=== PATIENT | male | born 1980 | race Caucasian/White ===

== ENCOUNTER → 2020-11-30 | Outpatient (CLI) | payer OTHER ==
--- NOTE | 2020-12-01 17:18 | P.STRESS ---
- Stress Test Note Stress Test Results/Findings: Exam Performed: stress echo exercise with con Exam Date: 11/30/20 Reason for Exam: Abnormal EKG Height: 6 ft Weight: 131.542 kg Protocol: Jamison Stage: III Duration of Exercise: 8:20 min Resting Heart Rate: 93 Resting Blood Pressure: 155/106 Maximum Achieved Heart Rate: 164 Maximum Achieved Blood Pressure: 266/62 85% PMHR: 155 100% PMHR: 182 METS: 10.1 Technologist Comment: Stress Test Results/Findings: Normal EKG at baseline Normal LV systolic function without segmental wall motion normalities Patient exercised for 8 minutes 20 seconds achieving a peak heart rate of 159 beats a minute No ECG evidence for ischemia No arrhythmias Stress echo images showed Good augmentation of overall LV contractility without development of any wall motion abnormalities At recovery, regional and global LV systolic function remained normal Impression No ECG or echocardiographic evidence for ischemia at this workload
== END | disposition home or self-care (01) ==
LOC: RADNMMAIN 10:09
PROVIDERS: ATTEND Family Medicine
DX: R94.31 Abnormal electrocardiogram [ECG] [EKG] (principal)
CPT/HCPCS: 93351; Q9950

== ENCOUNTER → 2021-09-12 | Outpatient (CLI) | payer OTHER ==
--- NOTE | 2021-09-12 21:52 | CT ---
EXAMINATION TYPE: CT chest w con CT DLP: 628.50 mGycm, Automated exposure control for dose reduction was used. DATE OF EXAM: 09/12/2021 5:59 PM COMPARISON: None CLINICAL INDICATION:Male, 41 years old with history of R06.00; , SOB since March 2021 when he had COVID TECHNIQUE: Multiple axial images were obtained through the chest following the administration of 100 cc of Isovue 300. FINDINGS: LUNGS/ PLEURA: Groundglass opacity seen throughout the lungs. There is a small right and trace left p leural effusion. No evidence of pneumothorax. AIRWAY: Patent and unremarkable.. HEART: Size within normal limits. MEDIASTINUM: Right lobe paratracheal lymph node measuring up to 19 mm and AP window measuring 14 mm i n short axis. VASCULATURE: No aortic aneurysm. MUSCULOSKELETAL: No acute osseous abnormalities SOFT TISSUES/LYMPH NODES: Unremarkable. LOWER NECK: No significant findings. UPPER ABDOMEN: Fatty infiltration of segment 4A of the liver. IMPRESSION: 1. Findings suspicious for active atypical viral pneumonia such as covid 19. 2. Bilateral, small right and trace left pleural effusions. These are likely reactive to #1. 3. Mediastinal lymphadenopathy likely reactive to #1.
== END | disposition home or self-care (01) ==
LOC: RADCTMAIN 17:27
PROVIDERS: ATTEND Family Medicine
DX: J90 Pleural effusion, not elsewhere classified (principal); R59.0 Localized enlarged lymph nodes
CPT/HCPCS: 71260; Q9967

== ENCOUNTER 2021-09-17 22:35 | Inpatient (IN) | payer OTHER ==
--- NOTE | 2021-09-18 00:36 | XR ---
EXAMINATION TYPE: XR chest 2V DATE OF EXAM: 09/18/2021 COMPARISON: NONE HISTORY: Short of breath TECHNIQUE: 2 views FINDINGS: Heart is enlarged. There is some patchy pulmonary airspace edema. Edema more on the right s alan. There is slight blunting of the right costophrenic angle. The thoracic spine is intact. Ribs appear intact. IMPRESSION: Cardiomegaly and patchy pulmonary airspace edema could relate to congestive heart failure and RDS.
[2021-09-18] MEDS ORDERED: MORPHINE SULFATE 4 MG/ML SYRINGE IV STA (00:54)
[2021-09-18] MEDS ORDERED: NITROGLYCERIN OINT 1 INCH/GM PACKET TOPICAL STA (00:54)
[2021-09-18] MEDS ORDERED: hydrALAZINE HCL 20 MG/ML 1 ML VIAL IVP STA (00:54)
--- NOTE | 2021-09-18 01:00 | ED ---
SOB HPI - General Chief Complaint: Shortness of Breath Stated Complaint: TANIYA Time Seen by Provider: 09/18/21 00:41 Source: patient Mode of arrival: ambulatory - History of Present Illness Initial Comments: This patient is a 41-year-old man who presents to have evaluation for cough and shortness of breath as well as bilateral leg swelling. The patient states that he has been having issues related to cough and a little shortness of breath going back for days to weeks. He had seen his primary physician who had had had an x-ray taken that he was told showed "scar tissue related to Myles 19 infection from March. When the symptoms did not improve he was sent for computed tomography scan last week and has not received result of that yet. Patient noted that over the past few days she has had progressive bilateral lower extremity swelling and the breathing is worsened somewhat. No fever or chills. No chest pain. He has not noted change in urination or bowel movemen tsHeena AUGUST Complaint: shortness of breath, cough -: days(s) Severity scale (1-10): 0 Consistency: constant Improves With: nothing Worsens With: exertion Treatments Prior to Arrival: none - Related Data Previous Rx's Medication Instructions Recorded Aspirin 81 mg PO DAILY #30 tab 09/20/21 Atorvastatin [Lipitor] 40 mg PO HS #30 tab 09/20/21 Furosemide [Lasix] 40 mg PO BID@0900,1600 #60 tab 09/20/21 Losartan [Cozaar] 25 mg PO DAILY #30 tab 09/20/21 Metoprolol Succinate (ER) [Toprol 50 mg PO DAILY 90 Days #90 tab 09/20/21 XL] Spironolactone [Aldactone] 25 mg PO DAILY #30 tab 09/20/21 Allergies Allergy/AdvReac Type Severity Reaction Status Date / Time No Known Allergies Allergy Verified 09/18/21 07:57 Review of Systems ROS Statement: Those systems with pertinent positive or pertinent negative responses have been documented in the HPI. ROS Other: All systems not noted in ROS Statement are negative. Constitutional: Denies: fever, chills, weakness Respiratory: Reports: cough, dyspnea. Denies: wheezes, hemoptysis Cardiovascular: Reports: edema. Denies: chest pain, palpitations, orthopnea, syncope Gastrointestinal: Denies: abdominal pain, vomiting, diarrhea Genitourinary: Denies: dysuria, hematuria Musculoskeletal: Denies: back pain Skin: Denies: rash Neurological: Denies: headache, weakness, numbness Past Medical History Past Medical History: Hypertension History of Any Multi-Drug Resistant Organisms: None Reported Past Surgical History: No Surgical Hx Reported Past Psychological History: No Psychological Hx Reported Smoking Status: Current some day smoker Past Alcohol Use History: Occasional Past Drug Use History: None Reported - Past Family History family ] Family Medical History: No Reported History Father Additional Family Medical History / Comment(s): liver cancer Mother Family Medical History: Diabetes Mellitus General Exam General appearance: alert, in no apparent distress Head exam: Present: atraumatic, normocephalic Eye exam: Present: normal appearance. Absent: scleral icterus, conjunctival injection Neck exam: Present: normal inspection Respiratory exam: Present: rales (Bilateral bases). Absent: respiratory distress, wheezes, rhonchi, stridor, accessory muscle use, decreased breath sounds Cardiovascular Exam: Present: normal rhythm, tachycardia, gallop. Absent: systolic murmur, diastolic murmur, rubs GI/Abdominal exam: Present: soft. Absent: distended, tenderness, guarding, rebound, rigid, mass Extremities exam: Present: normal inspection, normal capillary refill, pedal edema. Absent: calf tenderness Back exam: Present: normal inspection. Absent: CVA tenderness (R), CVA tenderness (L) Neurological exam: Present: alert Skin exam: Present: warm, dry, intact, normal color. Absent: rash Course Vital Signs 09/17/21 09/18/21 09/18/21 23:36 01:47 02:47 Temperature 98.5 F Pulse Rate 113 H 90 99 Respiratory 19 18 18 Rate Blood Pressure 182/118 156/121 144/109 O2 Sat by Pulse 90 L 94 L 93 L Oximetry 09/18/21 03:47 Temperature Pulse Rate 101 H Respiratory 18 Rate Blood Pressure 159/101 O2 Sat by Pulse 94 L Oximetry Medical Decision Making - Lab Data Result diagrams: 09/19/21 09:34 09/20/21 09:14 Lab Results 09/18/21 09/18/21 09/18/21 Range/Units 01:58 01:58 01:58 WBC 9.6 (3.8-10.6) k/uL RBC 5.10 (4.30-5.90) m/uL Hgb 15.4 (13.0-17.5) gm/dL Hct 47.4 (39.0-53.0) % MCV 92.9 (80.0-100.0) fL MCH 30.2 (25.0-35.0) pg MCHC 32.5 (31.0-37.0) g/dL RDW 14.6 (11.5-15.5) % Plt Count 292 (150-450) k/uL MPV 7.5 Neutrophils % 74 % Lymphocytes % 18 % Monocytes % 4 % Eosinophils % 2 % Basophils % 1 % Neutrophils # 7.1 (1.3-7.7) k/uL Lymphocytes # 1.7 (1.0-4.8) k/uL Monocytes # 0.4 (0-1.0) k/uL Eosinophils # 0.2 (0-0.7) k/uL Basophils # 0.1 (0-0.2) k/uL Hypochromasia Slight PT 11.8 (9.0-12.0) sec INR 1.1 (<1.2) APTT 24.5 (22.0-30.0) sec D-Dimer 1.83 H (<0.60) mg/L FEU Sodium 139 (137-145) mmol/L Potassium 4.6 (3.5-5.1) mmol/L Chloride 109 H (98-107) mmol/L Carbon Dioxide 24 (22-30) mmol/L Anion Gap 6 mmol/L BUN 19 (9-20) mg/dL Creatinine 1.20 (0.66-1.25) mg/dL Est GFR (CKD-EPI)AfAm 88 (>60 ml/min/1.73 sqM) Est GFR (CKD-EPI)NonAf 76 (>60 ml/min/1.73 sqM) Glucose 102 H (74-99) mg/dL Plasma Lactic Acid Lefty (0.7-2.0) mmol/L Calcium 8.5 (8.4-10.2) mg/dL Total Bilirubin 1.1 (0.2-1.3) mg/dL AST 35 (17-59) U/L ALT 31 (4-49) U/L Alkaline Phosphatase 67 (38-126) U/L Troponin I (0.000-0.034) ng/mL NT-Pro-B Natriuret Pep pg/mL Total Protein 6.5 (6.3-8.2) g/dL Albumin 3.6 (3.5-5.0) g/dL Coronavirus (PCR) (Not Detectd) Influenza Type A RNA (Not Detectd) Influenza Type B (PCR) (Not Detectd) 09/18/21 09/18/21 09/18/21 Range/Units 01:58 01:58 01:58 WBC (3.8-10.6) k/uL RBC (4.30-5.90) m/uL Hgb (13.0-17.5) gm/dL Hct (39.0-53.0) % MCV (80.0-100.0) fL MCH (25.0-35.0) pg MCHC (31.0-37.0) g/dL RDW (11.5-15.5) % Plt Count (150-450) k/uL MPV Neutrophils % % Lymphocytes % % Monocytes % % Eosinophils % % Basophils % % Neutrophils # (1.3-7.7) k/uL Lymphocytes # (1.0-4.8) k/uL Monocytes # (0-1.0) k/uL Eosinophils # (0-0.7) k/uL Basophils # (0-0.2) k/uL Hypochromasia PT (9.0-12.0) sec INR (<1.2) APTT (22.0-30.0) sec D-Dimer (<0.60) mg/L FEU Sodium (137-145) mmol/L Potassium (3.5-5.1) mmol/L Chloride (98-107) mmol/L Carbon Dioxide (22-30) mmol/L Anion Gap mmol/L BUN (9-20) mg/dL Creatinine (0.66-1.25) mg/dL Est GFR (CKD-EPI)AfAm (>60 ml/min/1.73 sqM) Est GFR (CKD-EPI)NonAf (>60 ml/min/1.73 sqM) Glucose (74-99) mg/dL Plasma Lactic Acid Lefty 1.3 (0.7-2.0) mmol/L Calcium (8.4-10.2) mg/dL Total Bilirubin (0.2-1.3) mg/dL AST (17-59) U/L ALT (4-49) U/L Alkaline Phosphatase (38-126) U/L Troponin I 0.036 H* (0.000-0.034) ng/mL NT-Pro-B Natriuret Pep 4010 pg/mL Total Protein (6.3-8.2) g/dL Albumin (3.5-5.0) g/dL Coronavirus (PCR) (Not Detectd) Influenza Type A RNA (Not Detectd) Influenza Type B (PCR) (Not Detectd) 09/18/21 09/18/21 Range/Units 01:58 01:58 WBC (3.8-10.6) k/uL RBC (4.30-5.90) m/uL Hgb (13.0-17.5) gm/dL Hct (39.0-53.0) % MCV (80.0-100.0) fL MCH (25.0-35.0) pg MCHC (31.0-37.0) g/dL RDW (11.5-15.5) % Plt Count (150-450) k/uL MPV Neutrophils % % Lymphocytes % % Monocytes % % Eosinophils % % Basophils % % Neutrophils # (1.3-7.7) k/uL Lymphocytes # (1.0-4.8) k/uL Monocytes # (0-1.0) k/uL Eosinophils # (0-0.7) k/uL Basophils # (0-0.2) k/uL Hypochromasia PT (9.0-12.0) sec INR (<1.2) APTT (22.0-30.0) sec D-Dimer (<0.60) mg/L FEU Sodium (137-145) mmol/L Potassium (3.5-5.1) mmol/L Chloride (98-107) mmol/L Carbon Dioxide (22-30) mmol/L Anion Gap mmol/L BUN (9-20) mg/dL Creatinine (0.66-1.25) mg/dL Est GFR (CKD-EPI)AfAm (>60 ml/min/1.73 sqM) Est GFR (CKD-EPI)NonAf (>60 ml/min/1.73 sqM) Glucose (74-99) mg/dL Plasma Lactic Acid Lefty (0.7-2.0) mmol/L Calcium (8.4-10.2) mg/dL Total Bilirubin (0.2-1.3) mg/dL AST (17-59) U/L ALT (4-49) U/L Alkaline Phosphatase (38-126) U/L Troponin I (0.000-0.034) ng/mL NT-Pro-B Natriuret Pep pg/mL Total Protein (6.3-8.2) g/dL Albumin (3.5-5.0) g/dL Coronavirus (PCR) Not Detected (Not Detectd) Influenza Type A RNA Not Detected (Not Detectd) Influenza Type B (PCR) Not Detected (Not Detectd) - EKG Data -: EKG Interpreted by Me EKG shows normal: sinus rhythm, axis (Normal), intervals (Normal), QRS complexes (Normal) Rate: normal (Rate 89 bpm) Interpretation: nonspecific ST-T wave changes Disposition Clinical Impression: CHF (congestive heart failure), Elevated troponin, Acute kidney injury, Hypertension Disposition: ADMITTED IP TO THIS HOSP Condition: Stable Is patient prescribed a controlled substance at d/c from ED?: No
[2021-09-18 02:14] LABS: Basophils # (A) 0.1 k/uL (0-0.2); Basophils % (A) 1 %; Eosinophils # (A) 0.2 k/uL (0-0.7); Eosinophils % (A) 2 %; HCT 47.4 % (39.0-53.0); HGB 15.4 gm/dL (13.0-17.5); Hypochromasia Slight; Lymphocytes # (A) 1.7 k/uL (1.0-4.8); Lymphocytes % (A) 18 %; MCH 30.2 pg (25.0-35.0); MCHC 32.5 g/dL (31.0-37.0); MCV 92.9 fL (80.0-100.0); Mean Platelet Volume 7.5; Monocytes # (A) 0.4 k/uL (0-1.0); Monocytes % (A) 4 %; Neutrophils # (A) 7.1 k/uL (1.3-7.7); Neutrophils % (A) 74 %; Platelet Count 292 k/uL (150-450); RDW 14.6 % (11.5-15.5); WBC 9.6 k/uL (3.8-10.6)
[2021-09-18 02:31] LABS: Albumin 3.6 g/dL (3.5-5.0); Calcium 8.5 mg/dL (8.4-10.2); Total Bilirubin 1.1 mg/dL (0.2-1.3); Total Protein 6.5 g/dL (6.3-8.2)
[2021-09-18 02:37] LABS: Potassium 4.6 mmol/L (3.5-5.1)
[2021-09-18 02:42] LABS: INR 1.1 (<1.2); Partial Thromboplastin Time 24.5 sec (22.0-30.0); Prothrombin Time 11.8 sec (9.0-12.0)
[2021-09-18] MEDS ORDERED: ASPIRIN 81 MG PO STA (02:48)
[2021-09-18] MEDS ORDERED: ALPRAZolam 0.5 MG TAB PO STA (03:14)
[2021-09-18] MEDS ORDERED: FUROSEMIDE 10 MG/ML 4 ML VIAL IV SCH (03:45)
[2021-09-18] MEDS ORDERED: cloNIDine HCL 0.2 MG TAB PO PRN (03:59)
--- NOTE | 2021-09-18 04:08 | P.HPIM ---
History of Present Illness H&P Date: 09/18/21 Chief Complaint: SOB 41 year old male with history of hypertension , not currently on medications patient recently traveled by car to [place], and drove back. he was doing long stretches with not much rest and breaks. since he got back he was feeling increasingly tired. over past week or so , he was getting increasingly short of breath with any activity. which is pretty unusual for him. this has been associated with coughing, non productive, easy fatiguability , orthopnea, PNDs. and progressive swelling of bilateral legs, right > left. he went to see his doctor who ordered CTA of the chest, but no results reported to him . otherwise denies any fever, chills, hemoptyisis, URI symptoms, nausea or vomiting , abd pain , urinary or bowel habit changes. in the ED he was found hypoxic with oxygen sat 90% on room air, uncontrolled blood pressure, blood work showed elevated trops, d dimer, and pro BNP. CXR showed changes suggestive of mild CHF he quit smoking 3 weeks ago . denies drugs or heavy alcohol . Review of Systems Pertinent positives as noted in HPI. All other systems were reviewed and are negative Past Medical History Past Medical History: Hypertension History of Any Multi-Drug Resistant Organisms: None Reported Past Surgical History: No Surgical Hx Reported Past Psychological History: No Psychological Hx Reported Smoking Status: Current some day smoker Past Alcohol Use History: Occasional Past Drug Use History: None Reported - Past Family History family ] Family Medical History: No Reported History Medications and Allergies Allergies Allergy/AdvReac Type Severity Reaction Status Date / Time No Known Allergies Allergy Verified 09/17/21 23:47 Physical Exam Vitals: Vital Signs Temp Pulse Resp BP Pulse Ox 09/17/21 23:36 98.5 F 113 H 19 182/118 90 L Intake and Output 09/17/21 09/17/21 09/18/21 14:59 22:59 06:59 Other: Weight 124.738 kg Constitutional: No acute distress, conversant, pleasant Eyes: Anicteric sclerae, moist conjunctiva, Pupils equal round reactive to light ENMT: NC/AT Oropharynx clear, no erythema, or exudates Neck: Supple, no masses, or JVD No carotid bruits No thyromegaly Lungs: decrease breath sounds at lung basis with inspiratory rales bilaterally Clear to percussion Normal respiratory effort, no accessory muscle use Cardiovascular: Heart regular in rate and rhythm, No murmurs, gallops, or rubs +3 bilateral pitting peripheral edema Abdominal: Soft Nontender, no guarding, rebound or rigidity Abdomen moving with respiration Normoactive bowel sounds No hepatomegaly, No splenomegaly No palpable mass No abdominal wall hernia noted Skin: Normal temperature, tone, texture, turgor No induration No subcutaneous nodules No rash, lesions No ulcers Extremities: No digital cyanosis No clubbing Pedal pulses intact and symmetrical Radial pulses intact and symmetrical No calf tenderness Psychiatric: Alert and oriented to person, place and time Appropriate affect fair judgement Neuro Muscles Strength 5/5 in all 4 extremities Sensation to light touch grossly present throughout Cranial nerves II-XII grossly intact No focal sensory deficits Lymphatics: no palpable cervical or supraclavicular , or inguinal lymph nodes Results CBC & Chem 7: 09/18/21 01:58 09/18/21 01:58 Labs: Abnormal Lab Results - Last 24 Hours (Table) 09/18/21 09/18/21 09/18/21 Range/Units 01:58 01:58 01:58 D-Dimer 1.83 H (<0.60) mg/L FEU Chloride 109 H (98-107) mmol/L Glucose 102 H (74-99) mg/dL Troponin I 0.036 H* (0.000-0.034) ng/mL Assessment and Plan Assessment: acute hypoxic respiratory failure new onset CHF rule out venous thrombo embolism uncontrolled hypertension elevated trops plan trend trops cardiac rehabilitation program director cardiology consult ASA lasix IV BID echo CTA of lungs venous doppler US b/l legs PRN clonidine initiate on lisinopril check lipid panel , TSH, A1c xanax PRN full code DVT PPX heparin sc tid anticipated length of stay > 2 midnights
--- NOTE | 2021-09-18 04:39 | CT ---
EXAMINATION TYPE: CT chest angio for PE DATE OF EXAM: 09/18/2021 COMPARISON: None HISTORY: R/O PE CT DLP: 948.10 mGycm Automated exposure control for dose reduction was used. CONTRAST: Performed with IV Contrast, patient injected with 100 mL of Isovue 370. Images obtained from the thoracic inlet to the diaphragm with IV contrast. There are Three-D postproc essed images. There are small bilateral pleural effusions. Heart is enlarged. There is patchy interstitial and airs pace infiltrates throughout both lungs. There are multiple enlarged paratracheal and mediastinal lymph nodes measuring up to 2 cm. There are a few bilateral bronchial lymph nodes up to 1 cm. There is no evidence of filling defect in the pulmo nary arteries. Bony thorax is intact. Sternum is intact. There is no compression fracture. IMPRESSION: No evidence of pulmonary embolism. Patchy pulmonary edema with right pleural effusion. Mild mediastin al and bronchial adenopathy. Congestive heart failure is possible. Multifocal pneumonia or RDS is pos sible.
[2021-09-18 04:59] LABS: Basophils # (A) 0.1 k/uL (0-0.2); Basophils % (A) 1 %; Eosinophils # (A) 0.1 k/uL (0-0.7); Eosinophils % (A) 1 %; HCT 51.2 % (39.0-53.0); HGB 16.2 gm/dL (13.0-17.5); Hypochromasia Slight; Lymphocytes # (A) 1.6 k/uL (1.0-4.8); Lymphocytes % (A) 15 %; MCH 29.7 pg (25.0-35.0); MCHC 31.7 g/dL (31.0-37.0); MCV 93.5 fL (80.0-100.0); Mean Platelet Volume 7.4; Monocytes # (A) 0.4 k/uL (0-1.0); Monocytes % (A) 3 %; Neutrophils # (A) 8.2 k/uL (1.3-7.7); Neutrophils % (A) 78 %; Platelet Count 314 k/uL (150-450); RBC 5.47 m/uL (4.30-5.90); RDW 14.5 % (11.5-15.5); WBC 10.5 k/uL (3.8-10.6)
[2021-09-18 05:17] LABS: ALT 33 U/L (4-49); AST 28 U/L (17-59); African American GFR (CKD) 85 (>60 ml/min/1.73 sqM); Albumin 4.1 g/dL (3.5-5.0); Alkaline Phosphatase 88 U/L (38-126); Anion Gap 8 mmol/L; Blood Urea Nitrogen 17 mg/dL (9-20); Carbon Dioxide 26 mmol/L (22-30); Chloride 105 mmol/L (98-107); Glucose 102 mg/dL (74-99); Non-African American GFR(CKD) 74 (>60 ml/min/1.73 sqM); Potassium 4.1 mmol/L (3.5-5.1); Sodium 139 mmol/L (137-145); Total Bilirubin 1.3 mg/dL (0.2-1.3); Total Protein 7.1 g/dL (6.3-8.2)
--- NOTE | 2021-09-18 07:41 | US ---
EXAMINATION TYPE: US venous doppler duplex LE BI DATE OF EXAM: 09/18/2021 7:31 AM COMPARISON: NONE CLINICAL HISTORY: rule out DVT. edema bilateral legs SIDE PERFORMED: bilateral TECHNIQUE: The lower extremity deep venous system is examined utilizing real time linear array sonog jaylin with graded compression, doppler sonography and color-flow sonography. VESSELS IMAGED: Common Femoral Vein Deep Femoral Vein Greater Saphenous Vein * Femoral Vein Popliteal Vein Small Saphenous Vein * Proximal Calf Veins (* superficial vessels) Right Leg: no evidence of DVT Left Leg: no evidence of DVT IMPRESSION: No evidence for DVT.
[2021-09-18] MEDS: NITROGLYCERIN OINT 1 INCH/GM PACKET TOPICAL SCH ×4 (09:19→21:05)
[2021-09-18] MEDS ORDERED: ALPRAZolam 0.25 MG TAB PO PRN (09:21)
[2021-09-18] MEDS ORDERED: ALPRAZolam 0.5 MG TAB PO PRN (09:21)
[2021-09-18] MEDS ORDERED: ATORVASTATIN 80 MG TAB PO STA (09:21)
[2021-09-18] MEDS ORDERED: NITROGLYCERIN SL TABS 0.4 MG TAB SUBLINGUAL PRN (09:21)
[2021-09-18] MEDS ORDERED: ASPIRIN 325 MG TAB PO STA (10:10)
[2021-09-18] MEDS: HEPARIN SODIUM,PORCINE/PF 5,000 UNIT/0.5 ML SYRINGE SQ SCH ×3 (10:17→23:27)
[2021-09-18] MEDS: ACETAMINOPHEN TAB 325 MG TAB PO PRN ×2 (10:17→23:27)
[2021-09-18] MEDS: lisinopriL 10 MG TAB PO SCH (10:18)
--- NOTE | 2021-09-18 10:32 | P.CRDCN ---
History of Present Illness History of present illness: HISTORY OF PRESENTING ILLNESS This is a pleasant 41-year-old male past medical history significant for Covid 19 infection in 03/2021 and hypertension (currently not on antihypertensives), chronic nicotine dependence (recently quit 3 weeks ago). He does not follow with a shipmaster. We have been asked to see in consultation for congestive heart failure. Patient presents emergency department with worsening symptoms of fatigue, bilateral lower extremity edema, dyspnea on exertion, shortness of breath, orthopnea, increased/fluctuating weight. He states his symptoms initially started in March when he had COVID, he thought it was lasting longer and he had longstanding covid symptoms. However, over the past week his symptoms have been becoming severe. He denies any chest pain, palpitations, lightheadedness, dizziness, syncope or near syncope. She denies a history of coronary disease, WI, stroke, diabetes. Family history includes grandmother had a history of WI. She has a history of chronic nicotine dependence recently quit 3 weeks ago. Denies daily alcohol use . He currently does not take any medications at home. DIAGNOSTICS EKG reveals sinus tachycardia, no acute ST segment abnormalities stress ischemia. Telemetry tracings indicate sinus mechanism with heart rates in the [id number] Chest xray cardiomegaly and patchy pulmonary is received edema Venous Dopplers were negative for DVT bilaterally Chest CT was negative for pulmonary embolism. Patchy pulmonary edema with right pleural effusion. Mild mediastinal bronchus or adenopathy. Laboratory reviewed, CBC unremarkable, d-dimer 1.8, sodium 139, potassium 4.1, BUN 17, serum creatinine 1.23, troponin 0.036, 0.039, 0.034, BNP 4010, TSH within normal limits, Covid and influenza PCR negative Stress echocardiogram test in 11/2020 revealed normal LV systolic function without segmental wall motion abnormalities. No evidence of ischemia. REVIEW OF SYSTEMS At the time of my exam: CONSTITUTIONAL: Denies fever or chills. CARDIOVASCULAR: Denies chest pain, +shortness of breath, +orthopnea, +PND Denies palpitations. RESPIRATORY: Denies cough. GASTROINTESTINAL: Denies abdominal pain, diarrhea, constipation, nausea or vomiting. MUSCULOSKELETAL: Denies myalgias. NEUROLOGIC: Denies numbness, tingling, headache or weakness. ENDOCRINE: Denies fatigue, +weight change, Denies polydipsia or polyurina. GENITOURINARY: Denies burning, hematuria or urgency with micturation. HEMATOLOGIC: Denies history of anemia or bleeding. PHYSICAL EXAMINATION Blood pressure 134/93, heart rate 103, afebrile, saturations 93% on room air CONSTITUTIONAL: No apparent distress. HEENT: Head is normocephalic. Pupils are equal, round. Sclerae anicteric. Mucous membranes of the mouth are moist. + JVD. No carotid bruit. CHEST EXAMINATION: Lungs crackles in the bases to auscultation. No chest wall tenderness is noted on palpation or with deep breathing. HEART EXAMINATION: Regular rate and rhythm. S1, S2 heard. No murmurs, gallops or rub. ABDOMEN: Soft, nontender. Positive bowel sounds. EXTREMITIES: 2+ peripheral pulses, 2+ bilateral extremity edema and no calf tenderness. SKIN: warm, dry NEUROLOGIC EXAMINATION: Patient is awake, alert and oriented x3. ASSESSMENT Acute heart failure with reduced ejection fraction Cardimyopathy with EF 20-25%, unclear etiology at this time History of hypertension Former tobacco use Covid-19 infection in march 2021 PLAN -Obtain 2D echocardiogram and doppler study to assess cardiac structure and function- reviewed at bedside by Dr. Raines with an about EF 20-25%, global hypokinesis -NPO -Continue aspirin 81 mg daily, IV Lasix 40 mg IV twice a day, lisinopril 10 mg daily -Monitor renal function and electrolytes. -Monitor I/Os, daily weights -Plan for right and left heart catheterization with Dr. Raines today. Patient is agreeable -I have discussed the risks, benefits and alternative therapies for the above- mentioned procedure and for both sedation/analgesia as well as necessary blood product administration, if indicated, as they pertain to this patient. The patient has indicated understanding and acceptance of the risks and procedures discussed. Questions have been answered appropriately and he is agreeable to move forward with the above-stated procedure. -Further recommendations based on clinical course Thank you kindly for this consultation. Nurse practitioner note has been reviewed by physician. Signing provider agrees with the documented findings, assessment, and plan of care. Past Medical History Past Medical History: Hypertension History of Any Multi-Drug Resistant Organisms: None Reported Past Surgical History: No Surgical Hx Reported Past Psychological History: No Psychological Hx Reported Smoking Status: Former smoker Past Alcohol Use History: Occasional Past Drug Use History: None Reported - Past Family History Father Additional Family Medical History / Comment(s): liver cancer Mother Family Medical History: Diabetes Mellitus family ] Family Medical History: No Reported History Medications and Allergies Home Medications Medication Instructions Recorded Confirmed Type No Known Home Medications 09/18/21 09/18/21 History Allergies Allergy/AdvReac Type Severity Reaction Status Date / Time No Known Allergies Allergy Verified 09/18/21 07:57 Physical Exam Vitals: Vital Signs Temp Pulse Pulse Resp BP BP Pulse Ox 09/18/21 08:00 97.6 F 103 H 17 134/93 93 L 09/18/21 05:28 97.6 F 113 H 18 157/120 93 L 09/18/21 03:47 101 H 18 159/101 94 L 09/18/21 02:47 99 18 144/109 93 L 09/18/21 01:47 90 18 156/121 94 L 09/17/21 23:36 98.5 F 113 H 19 182/118 90 L Intake and Output 09/17/21 09/18/21 09/18/21 22:59 06:59 14:59 Output Total 1820 Balance -1820 Output: Urine 1820 Other: Weight 124.738 kg Results 09/18/21 04:29 09/18/21 04:29 Cardiac Enzymes 09/18/21 09/18/21 09/18/21 Range/Units 01:58 01:58 04:29 AST 35 (17-59) U/L Troponin I 0.036 H* 0.039 H* (0.000-0.034) ng/mL 09/18/21 Range/Units 04:29 AST 28 (17-59) U/L Troponin I (0.000-0.034) ng/mL Coagulation 09/18/21 Range/Units 01:58 PT 11.8 (9.0-12.0) sec APTT 24.5 (22.0-30.0) sec CBC 09/18/21 09/18/21 Range/Units 01:58 04:29 WBC 9.6 10.5 (3.8-10.6) k/uL RBC 5.10 5.47 (4.30-5.90) m/uL Hgb 15.4 16.2 (13.0-17.5) gm/dL Hct 47.4 51.2 (39.0-53.0) % Plt Count 292 314 (150-450) k/uL Comprehensive Metabolic Panel 09/18/21 09/18/21 Range/Units 01:58 04:29 Sodium 139 139 (137-145) mmol/L Potassium 4.6 4.1 (3.5-5.1) mmol/L Chloride 109 H 105 (98-107) mmol/L Carbon Dioxide 24 26 (22-30) mmol/L BUN 19 17 (9-20) mg/dL Creatinine 1.20 1.23 (0.66-1.25) mg/dL Glucose 102 H 102 H (74-99) mg/dL Calcium 8.5 9.0 (8.4-10.2) mg/dL AST 35 28 (17-59) U/L ALT 31 33 (4-49) U/L Alkaline Phosphatase 67 88 (38-126) U/L Total Protein 6.5 7.1 (6.3-8.2) g/dL Albumin 3.6 4.1 (3.5-5.0) g/dL Current Medications Generic Name Dose Route Start Last Admin Trade Name Freq PRN Reason Stop Dose Admin Aspirin 325 mg 09/19/21 09:00 Aspirin 325 Mg Tab PO DAILY MORENA Clonidine 0.2 mg 09/18/21 03:59 09/18/21 06:02 Clonidine Hcl 0.2 Mg Tab PO 0.2 mg QID PRN Administration Blood Pressure - High Furosemide 40 mg 09/18/21 03:45 09/18/21 04:10 Furosemide 10 Mg/Ml 4 Ml Vial IV 40 mg Q12H MORENA Administration Heparin Sodium (Porcine) 5,000 unit 09/18/21 08:00 Heparin Sodium,Porcine/Pf 5,000 Unit/0.5 Ml Syringe SQ Q8HR MORENA Lisinopril 10 mg 09/18/21 09:00 Lisinopril 10 Mg Tab PO DAILY MORENA Nitroglycerin 1 inch 09/18/21 09:00 Nitroglycerin Oint 1 Inch/Gm Packet TOPICAL QID MORENA Sodium Chloride 10 ml 09/18/21 09:00 Sodium Chloride 0.9% Flush 10 Ml Syringe IV BID MORENA Intake and Output 09/17/21 09/18/21 09/18/21 22:59 06:59 14:59 Output Total 1820 Balance -1820 Output: Urine 1820 Other: Weight 124.738 kg 09/18/21 04:29 09/18/21 04:29
[2021-09-18 11:13] LABS: Chol/HDL Ratio 5.19 Ratio
--- NOTE | 2021-09-18 12:58 | P.PN ---
Subjective Progress Note Date: 09/18/21 Principal diagnosis: Shortness of breath, lower extremity swelling Patient was seen and examined. No acute events overnight. Patient reports improvement in his breathing since admission. He continues to report lower extremity swelling has been improving as well. Denies any chest pain or palpitations. No nausea or vomiting. No fever or chills. Venous dopper negative for DVT. CTA chest negative for PE shows patchy pulmonary edema with R pleural effusion. Objective - Vital Signs Vital signs: Vital Signs Temp 97.6 F 09/18/21 08:00 Pulse 103 H 09/18/21 08:00 Resp 17 09/18/21 08:00 BP 134/93 09/18/21 08:00 Pulse Ox 93 L 09/18/21 08:00 Intake & Output 09/17/21 09/18/21 09/18/21 18:59 06:59 18:59 Output Total 1820 Balance -1820 Weight 124.738 kg Output: Urine 1820 - Exam General: [non toxic], [no distress], [appears at stated age] Derm: [warm], [dry] Head: [atraumatic], [normocephalic], [symmetric] Eyes: [EOMI], [no lid lag], [anicteric sclera] Mouth: [no lip lesion], [mucus membranes moist] Cardiovascular: [S1S2 reg], [no murmur] Lungs: [Decreased breath sounds bilateral], [Inspiratory rales at the bases] , [no accessory muscle use] Abdominal: [soft], [ nontender to palpation], [no guarding], [no appreciable organomegaly] Ext: [no gross muscle atrophy], [2-3+ pitting edema bilateral lower extremity], [no contractures] Neuro: [no focal neuro deficits] Psych: [Alert], [oriented], [appropriate affect] - Labs CBC & Chem 7: 09/18/21 04:29 09/18/21 04:29 Labs: Abnormal Lab Results - Last 24 Hours (Table) 09/18/21 09/18/21 09/18/21 Range/Units 01:58 01:58 01:58 Neutrophils # (1.3-7.7) k/uL D-Dimer 1.83 H (<0.60) mg/L FEU Chloride 109 H (98-107) mmol/L Glucose 102 H (74-99) mg/dL Troponin I 0.036 H* (0.000-0.034) ng/mL Cholesterol (0.00-200.00) mg/dL LDL Cholesterol, Calc (0.0-131.0) mg/dL 09/18/21 09/18/21 09/18/21 Range/Units 04:29 04:29 04:29 Neutrophils # 8.2 H (1.3-7.7) k/uL D-Dimer (<0.60) mg/L FEU Chloride (98-107) mmol/L Glucose 102 H (74-99) mg/dL Troponin I 0.039 H* (0.000-0.034) ng/mL Cholesterol 222.00 H (0.00-200.00) mg/dL LDL Cholesterol, Calc 157.0 H (0.0-131.0) mg/dL Assessment and Plan Assessment: Assessment #Non-ST elevation NM #Acute systolic CHF with EF 20-25% #Hypertension with elevated BP #Dyslipidemia Plan Troponins have been downtrending from 0.036 to 0.039 and 0.034. EKG shows no ST elevation. Echocardiogram shows EF of 20-25% as per Cardiology report, official read is pending. Cardiology consulted, plans for cardiac catheterization today. Start Aspirin 80 mg by mouth daily along with Lipitor. Patient would benefit from beta nitish. Continue Telemetry monitoring. Patient will be started on Lasix 40 mg IV twice a day. Strict intake and outtake is ordered. Daily weights is ordered. Official echocardiogram is pending. Continue Lisinopril for hypertension. Monitor vitals, adjust medications as necessary. DVT prophylaxis: [Heparin] Discussed with: [Patient] Anticipated discharge: [2-3 days] Anticipated discharge place: [Home] A total of [45] minutes was spent on the care of this complex patient more than 50% of the time was spent in counseling and care coordination.
[2021-09-18] MEDS ORDERED: IV FLUID CONTINUATION 350 ML IV ONE (14:18)
[2021-09-18] MEDS ORDERED: MIDAZOLAM 2 MG/2 ML VIAL IV ONE (14:31)
[2021-09-18] MEDS ORDERED: LIDOCAINE 1% INJ 10MG/ML (30 ML VIAL-PF) SQ ONE ×2 (14:33→14:34)
[2021-09-18] MEDS ORDERED: HYDROmorphone 0.5 MG/0.5 ML SYRINGE IVP ONE (14:39)
[2021-09-18] MEDS ORDERED: IOPAMIDOL-370 125ML BTL INJ ONE (15:01)
[2021-09-18] MEDS ORDERED: RX INFO: IV CONTRAST WAS GIVEN 1 EACH MISC MISCELLANE PRN (15:05)
--- NOTE | 2021-09-18 15:12 | P.PCN ---
Date of Procedure: 09/18/21 Operative Findings: CARDIAC CATHETERIZATION PERFORMING PHYSICIAN: Gerardo Raines MD, RPVI PROCEDURE PERFORMED: 1. Selective right and left coronary angiogram 2. Left heart catheterization 3. Right heart catheterization 4. Ultrasound-guided access of the right common femoral vein and common femoral artery 5. Selective right common femoral artery angiogram INDICATION: Cardiomyopathy of unknown etiology COMPLICATION: None APPROACH: Right common femoral vein Right common femoral artery LEVEL OF SEDATION: Moderate was sedation length of 30 minutes PROCEDURE DESCRIPTION: After obtaining an informed consent, the patient was brought to cardiac malthouse laborer. Local anesthesia was performed using lidocaine subcutaneously. Right common femoral vein was cannulated using micropuncture technique under ultrasound guidance, the micropuncture wire passed easily then I placed an 8- Martiniquais sheath. The right common femoral artery was cannulated using Seldinger technique, the guidewire passed easily, following that we advanced a 6 Martiniquais sheath dilator assembly, the wire and dilator were removed and sheath was flushed. Right heart catheterization was performed using 6-Martiniquais [place] catheter Selective right and left coronary angiogram using a 6-Martiniquais JR4 and JL catheters. Following that we did left heart catheterization using 6-Martiniquais pigtail catheter. The procedure was completed there was no complication. SELECTIVE CORONARY ANGIOGRAM: The right coronary artery: Is a large caliber vessel and dominant vessel. Its angiographically normal. Distally bifurcates into PDA and PLV branches and both appeared to be angiographically normal Left main: Is angiographically normal. It bifurcates into LCx and LAD The left circumflex: Is a large caliber vessel nondominant vessel appeared to be angiographically normal. The left anterior descending artery: Is a large caliber vessel. Its angiographically normal and gives rise into a large diagonal branch which seems to be angiographically normal HEMODYNAMICS: #1 the pulmonary capillary wedge pressure was 30 mmHg #2 PA pressures were as follow systolic 50 and diastolic of 28 and mean of 39 mmHg #3 RV pressures were as follow systolic 50 and in diastole, 23 mmHg #4 RA pressure was 18 mmHg #5 cardiac output was 5.86 L/m with a cardiac index of 2.43 L/m/m #6 transpulmonary gradient was 9 mmHg #7 pulmonary vascular resistance was 1.5 wood units CONCLUSION: 1. Normal coronary angiogram 2. Elevated left and right side filling pressure 3. Pulmonary hypertension, WHO group 2 POSTPROCEDURE MANAGEMENT: Medical treatment and follow-up with
[2021-09-18] MEDS ORDERED: SODIUM CHLORIDE 0.9% 1,000 ML IV SCH (15:15)
[2021-09-18] MEDS: FUROSEMIDE 10 MG/ML 4 ML VIAL IV SCH ×2 (16:09→21:06)
[2021-09-18] MEDS: ATORVASTATIN 40 MG TAB PO SCH (21:06)
[2021-09-19] MEDS ORDERED: HEPARIN SODIUM,PORCINE 10,000 UNIT in SODIUM CHLORIDE 0.9% 1,000 ML IRRIGATION PRN (07:00)
[2021-09-19] MEDS ORDERED: HEPARIN SODIUM,PORCINE 2,500 UNIT in SODIUM CHLORIDE 0.9% 250 ML IRRIGATION PRN (07:00)
--- NOTE | 2021-09-19 07:10 | CA ---
Transthoracic Echo Report Name: Giovani Meléndez Age: 41 Gender: M : 1980 Exam Date: 09/18/2021 08:41 Exam Location: [facility] Ht (in): 71 Wt (lb): 275 Ordering Physician: Lit Carroll MD Attending/Referring Phys: Oyster Washer Alicia Matamoros RDCS Procedure CPT: Indications: Heart failure Cardiac Hx: Technical Quality: Technically difficult study Contrast 1: Lumason Total Dose (mL): 4 Contrast 2: Total Dose (mL): MEASUREMENTS (Male / Female) Normal Values 2D ECHO LV Diastolic Diameter PLAX 6.2 cm 4.2 - 5.9 / 3.9 - 5.3 cm LV Systolic Diameter PLAX 5.5 cm IVS Diastolic Thickness 1.4 cm 0.6 - 1.0 / 0.6 - 0.9 cm LVPW Diastolic Thickness 1.4 cm 0.6 - 1.0 / 0.6 - 0.9 cm LV Relative Wall Thickness 0.4 RV Internal Dim ED PLAX 2.8 cm LA Volume 79.8 cm??? 18 - 58 / 22 - 52 cm??? M-MODE Aortic Root Diameter MM 3.1 cm LA Systolic Diameter MM 4.2 cm LA Ao Ratio MM 1.4 AV Cusp Separation MM 1.8 cm DOPPLER AV Peak Velocity 95.1 cm/s AV Peak Gradient 3.6 mmHg LVOT Peak Velocity 84.5 cm/s LVOT Peak Gradient 2.9 mmHg FINDINGS Left Ventricle Global left ventricular hypokinesis. Moderate left ventricular dilatation. Moderately increased left ventricular wall thickness. Moderate left ventricular dilatation. Left ventricular ejection fraction is estimated at 20-25 %. Right Ventricle Normal right ventricular size. Right Atrium Normal right atrial size. Left Atrium Severely increased left atrial volume. Mildly increased left atrial area. Mitral Valve [id number] mitral regurgitation. Aortic Valve No aortic valve stenosis or regurgitation. Tricuspid Valve Structurally normal tricuspid valve. Trace tricuspid regurgitation. Pulmonic Valve Structurally normal pulmonic valve. No pulmonic stenosis. No pulmonic regurgitation. Pericardium Normal pericardium. Aorta Normal size aortic root and proximal ascending aorta. CONCLUSIONS Dilated left ventricle with severe LV dysfunction. At least moderate eccentric mitral regurgitation Previewed by: Dr. Jerry Rdz MD (Electronically Signed) Final Date: 19 Sep 2021 07:09
[2021-09-19] MEDS ORDERED: ASPIRIN 325 MG TAB PO SCH (09:00)
[2021-09-19] MEDS: FUROSEMIDE 10 MG/ML 4 ML VIAL IV SCH ×2 (09:36→20:43)
[2021-09-19] MEDS: ASPIRIN 81 MG PO SCH (09:36)
[2021-09-19] MEDS: lisinopriL 10 MG TAB PO SCH (09:36)
[2021-09-19] MEDS: HEPARIN SODIUM,PORCINE/PF 5,000 UNIT/0.5 ML SYRINGE SQ SCH ×4 (09:37→23:49)
[2021-09-19 09:54] LABS: Basophils % (A) 1 %; Eosinophils # (A) 0.1 k/uL (0-0.7); Eosinophils % (A) 1 %; HCT 47.4 % (39.0-53.0); HGB 15.1 gm/dL (13.0-17.5); Hypochromasia Slight; Lymphocytes # (A) 1.9 k/uL (1.0-4.8); Lymphocytes % (A) 22 %; MCH 29.6 pg (25.0-35.0); MCHC 31.8 g/dL (31.0-37.0); MCV 93.2 fL (80.0-100.0); Mean Platelet Volume 7.3; Monocytes # (A) 0.4 k/uL (0-1.0); Monocytes % (A) 5 %; Neutrophils # (A) 5.9 k/uL (1.3-7.7); Neutrophils % (A) 69 %; Platelet Count 267 k/uL (150-450); RBC 5.09 m/uL (4.30-5.90); RDW 14.5 % (11.5-15.5); WBC 8.6 k/uL (3.8-10.6)
[2021-09-19 10:10] LABS: Calcium 8.3 mg/dL (8.4-10.2); Potassium 3.9 mmol/L (3.5-5.1)
[2021-09-19] MEDS: METOPROLOL SUCCINATE (ER) 25 MG TAB.ER.24H PO SCH (11:54)
[2021-09-19] MEDS: SPIRONOLACTONE 25 MG TAB PO SCH (11:54)
[2021-09-19] MEDS: NITROGLYCERIN OINT 1 INCH/GM PACKET TOPICAL SCH (12:20)
--- NOTE | 2021-09-19 13:25 | P.PN ---
Subjective This is a pleasant 41-year-old male past medical history significant for Covid 19 infection in 03/2021 and hypertension (currently not on antihypertensives), chronic nicotine dependence (recently quit 3 weeks ago). He does not follow with a family practice nurse practitioner. We have been asked to see in consultation for congestive heart failure. Patient presents emergency department with worsening symptoms of fatigue, bilateral lower extremity edema, dyspnea on exertion, shortness of breath, orthopnea, increased/fluctuating weight. He was found to be in acute hea rt failure with reduced ejection fraction, EF of 5%. Patient underwent left and right heart catheterization with Dr. 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 09/19/2021 Patient seen and examined at bedside, he continues to have some shortness of breath, but has significantly improved since admission. He denies any chest pain. I/Os: -3100 fluid balance over the past 24 hours. Telemetry reviewed patient in sinus and the parents 90s-110 Labs, sodium 139, potassium 3.9, BUN 19, serum creatinine 1.3 Patient is currently maintained on aspirin 80 mg daily, atorvastatin 40 mg nightly, IV Lasix 40 mg twice a day, lisinopril 10 mg daily. PHYSICAL EXAMINATION Blood pressure 134/93, heart rate 103, afebrile, saturations 93% on room air CONSTITUTIONAL: No apparent distress. HEENT: Neck Supple. No JVD No carotid bruit. CHEST EXAMINATION: Lungs clear to auscultation bilaterally. No chest wall tenderness is noted on palpation or with deep breathing. HEART EXAMINATION: Regular rate and rhythm. S1, S2 heard. No murmurs, gallops or rub. ABDOMEN: Soft, nontender. Positive bowel sounds. EXTREMITIES: 2+ peripheral pulses, 1-2+ bilateral extremity edema and no calf tenderness. SKIN: warm, dry NEUROLOGIC EXAMINATION: Patient is awake, alert and oriented x3. 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 -Monitor I/Os, daily weights -Further recommendations based on clinical course Nurse practitioner note has been reviewed by physician. Signing provider agrees with the documented findings, assessment, and plan of care. Objective - Vital Signs Vital signs: Vital Signs Temp 98.3 F 09/19/21 12:00 Pulse 103 H 09/19/21 12:00 Resp 17 09/19/21 12:00 BP 116/83 09/19/21 12:00 Pulse Ox 94 L 09/19/21 12:00 Intake & Output 09/18/21 09/19/21 09/19/21 18:59 06:59 18:59 Intake Total 240 Output Total 1800 1300 2100 Balance -1800 -1300 -1860 Weight 124.738 kg 132.4 kg Intake: Oral 240 Output: Urine 1800 1300 2100 - Labs CBC & Chem 7: 09/19/21 09:34 09/19/21 09:34 Labs: Abnormal Lab Results - Last 24 Hours (Table) 09/19/21 Range/Units 09:34 Creatinine 1.32 H (0.66-1.25) mg/dL Calcium 8.3 L (8.4-10.2) mg/dL
--- NOTE | 2021-09-19 15:11 | P.PN ---
Subjective Progress Note Date: 09/19/21 Principal diagnosis: Shortness of breath, lower extremity swelling Patient was seen and examined. No acute events overnight. Patient reports improvement in his breathing since admission. He continues to report lower extremity swelling has been improving as well. He has been diuresing well. Cardiac cath shows normal coronary angiogram. Echocardiogram shows EF 20-25% with moderate LV dilatation and global LV hypokinesis. Objective - Vital Signs Vital signs: Vital Signs Temp 98.3 F 09/19/21 12:00 Pulse 103 H 09/19/21 14:00 Resp 17 09/19/21 14:00 BP 116/83 09/19/21 12:00 Pulse Ox 94 L 09/19/21 12:00 Intake & Output 09/18/21 09/19/21 09/19/21 18:59 06:59 18:59 Intake Total 462 Output Total 1800 1300 2100 Balance -1800 1300 -1630 Weight 124.738 kg 132.4 kg Intake: Oral 462 Output: Urine 1800 1300 2100 Other: Voiding Method Urinal - Exam General: [non toxic], [no distress], [appears at stated age] Derm: [warm], [dry] Head: [atraumatic], [normocephalic], [symmetric] Eyes: [EOMI], [no lid lag], [anicteric sclera] Mouth: [no lip lesion], [mucus membranes moist] Cardiovascular: [S1S2 reg], [no murmur] Lungs: [Decreased breath sounds bilateral], [no accessory muscle use] Ext: [no gross muscle atrophy], [1-2+ pitting edema bilateral lower extremity], [no contractures] Neuro: [no focal neuro deficits] Psych: [Alert], [oriented], [appropriate affect] - Labs CBC & Chem 7: 09/19/21 09:34 09/19/21 09:34 Labs: Abnormal Lab Results - Last 24 Hours (Table) 09/19/21 Range/Units 09:34 Creatinine 1.32 H (0.66-1.25) mg/dL Calcium 8.3 L (8.4-10.2) mg/dL Assessment and Plan Assessment: Assessment #Acute systolic CHF with EF 20-25% #Troponin elevation, likely leak from CHF #Acute kidney injury #Hypertension with elevated BP #Dyslipidemia Plan Troponins have been downtrending from 0.036 to 0.039 and 0.034. EKG shows no ST elevation. Echocardiogram shows EF of 20-25% with global hypokinesis. Cardiac cath shows normal coronaries. Continue Aspirin 80 mg by mouth daily along with Lipitor. Patient started on Metoprolol 25 mg PO QD and Aldactone 25 mg PO QD. Continue Telemetry monitoring. Cardiology recommends one more day of Lasix 40 mg IV BID. Strict intake and outtake is ordered. Daily weights is ordered. Patient educated on fluid restriction and low salt diet. Elevated creatinine likely related to forced diuresis. Avoid other nephrotoxins. Continue to monitor. Continue Lisinopril, Metoprolol and Aldactone for hypertension. Monitor vitals, adjust medications as necessary. DVT prophylaxis: [Heparin] Discussed with: [Patient] Anticipated discharge: [1-2 days] Anticipated discharge place: [Home] A total of [45] minutes was spent on the care of this complex patient more than 50% of the time was spent in counseling and care coordination. Continue IV lasix for 1 more day. Likely transition to oral tomorrow. Anticipate DC in 1-2 days.
[2021-09-19] MEDS: ATORVASTATIN 40 MG TAB PO SCH (20:44)
[2021-09-19] MEDS ORDERED: BENZONATATE 100 MG CAP PO PRN (23:56)
[2021-09-20 08:41] VITALS: RESP 18
[2021-09-20] MEDS: FUROSEMIDE 10 MG/ML 4 ML VIAL IV SCH (08:41)
[2021-09-20] MEDS: SPIRONOLACTONE 25 MG TAB PO SCH (08:42)
[2021-09-20] MEDS: METOPROLOL SUCCINATE (ER) 25 MG TAB.ER.24H PO SCH (08:43)
[2021-09-20] MEDS: ASPIRIN 81 MG PO SCH (08:43)
[2021-09-20] MEDS: lisinopriL 10 MG TAB PO SCH (08:43)
[2021-09-20] MEDS: HEPARIN SODIUM,PORCINE/PF 5,000 UNIT/0.5 ML SYRINGE SQ SCH (08:43)
[2021-09-20] MEDS ORDERED: BENZOCAINE/MENTHOL LOZENG 1 EACH LOZENGE MUCOUS MEM PRN (09:00)
[2021-09-20 10:10] LABS: Calcium 8.6 mg/dL (8.4-10.2); Potassium 3.9 mmol/L (3.5-5.1)
--- NOTE | 2021-09-20 12:22 | P.DS ---
Providers Date of admission: 09/18/21 03:38 Expected date of discharge: 09/20/21 Attending physician: Lidia Vaughn MD Consults: 09/18/21 03:38 Consult Physician Routine Consulting Provider: Gerardo Raines Consult Reason/Comments: New-onset of congestive heart failure Do you want consulting provider notified?: Yes Primary care physician: Aba Armendariz MD Hospital Course: 41 year old male with history of hypertension, not currently on medications Patient recently traveled by car to [place], and drove back. He was doing long stretches with not much rest and breaks. Since he got back he was feeling increasingly tired over past week or so , he was getting increasingly short of breath with any activity. Which is pretty unusual for him. This has been a ssociated with coughing, non productive, easy fatiguability, orthopnea, PNDs, and progressive swelling of bilateral legs, right > left. He went to see his doctor who ordered CTA of the chest, but no results reported to him . Otherwise denies any fever, chills, hemoptyisis, URI symptoms, nausea or vomiting, abd pain, urinary or bowel habit changes. In the ED he was found hypoxic with oxygen sat 90% on room air, uncontrolled blood pressure, blood work showed elevated trops, d dimer, and pro BNP. CXR showed changes suggestive of mild CHF He quit smoking 3 weeks ago. Denies drugs or heavy alcohol. Troponins were trended 0.036, 0.039, 0.034. Cardiology was consulted and recommended cardiac catheterization. Echocardiogram showed EF of 20-25% with moderate LV dilatation and global LV hypokinesis. Cardiac cath showed normal coronary angiogram. Patient was started on aspirin, Lipitor, metoprolol, lisinopril and Aldactone. He was also diuresed with Lasix 40 mg IV twice a day. He was eventually transitioned to Lasix 40 mg by mouth twice a day. He reported a dry cough after initiation of lisinopril. Lisinopril was switched to losartan at the time of discharge. Patient was seen and examined on 09/20/2021. He reported a significant improvement in his breathing since admission. He also reported significant improvement in his lower extremity swelling. He was advised to follow-up low- salt, cardiac and fluid restricted diet. He was advised to weigh himself daily. He was advised to follow-up with his PCP within 1-2 days of discharge. Follow- up with cardiology within 1 week of discharge. All prescriptions were sent to his pharmacy. Patient verbalized understanding of the plan. This complex discharge took about 45 minutes to complete. General: [non toxic], [no distress], [appears at stated age] Derm: [warm], [dry] Head: [atraumatic], [normocephalic], [symmetric] Eyes: [EOMI], [no lid lag], [anicteric sclera] Mouth: [no lip lesion], [mucus membranes moist] Cardiovascular: [S1S2 reg], [no murmur] Lungs: [Decreased breath sounds bilateral], [no accessory muscle use] Ext: [no gross muscle atrophy], [1+ pitting edema bilateral lower extremity], [no contractures] Neuro: [no focal neuro deficits] Psych: [Alert], [oriented], [appropriate affect] Discharge Diagnosis: #Acute systolic CHF with EF 20-25% #Troponin elevation, likely leak from CHF #Acute kidney injury #Hypertension with elevated BP #Dyslipidemia Pertinent Studies: chest x-ray Chest CTA Venous Doppler Echocardiogram Procedures: cardiac catheterization Patient Condition at Discharge: Stable Plan - Discharge Summary Discharge Rx Participant: Yes New Discharge Prescriptions: New Losartan [Cozaar] 25 mg PO DAILY #30 tab Spironolactone [Aldactone] 25 mg PO DAILY #30 tab Aspirin 81 mg PO DAILY #30 tab Furosemide [Lasix] 40 mg PO BID@0900,1600 #60 tab Atorvastatin [Lipitor] 40 mg PO HS #30 tab Metoprolol Succinate (ER) [Toprol XL] 25 mg PO DAILY #30 tab Discharge Medication List Aspirin 81 mg PO DAILY #30 tab 09/20/21 [Rx] Atorvastatin [Lipitor] 40 mg PO HS #30 tab 09/20/21 [Rx] Furosemide [Lasix] 40 mg PO BID@0900,1600 #60 tab 09/20/21 [Rx] Losartan [Cozaar] 25 mg PO DAILY #30 tab 09/20/21 [Rx] Metoprolol Succinate (ER) [Toprol XL] 25 mg PO DAILY #30 tab 09/20/21 [Rx] Spironolactone [Aldactone] 25 mg PO DAILY #30 tab 09/20/21 [Rx] Follow up Appointment(s)/Referral(s): Gerardo Raines MD [STAFF PHYSICIAN] - 1 Week Aba Armendariz MD [Primary Care Provider] - 1-2 days Patient Instructions/Handouts: Heart Failure (GEN), Heart Healthy Diet (GEN), DASH Eating Plan (GEN) Activity/Diet/Wound Care/Special Instructions: Diet: Cardiac, low-salt, fluid restriction Follow-up with your PCP within 1-2 days of discharge. Follow-up with cardiology within 1 week of discharge. Take all medications as advised. Come back to the ED for worsening chest pain, shortness breath, palpitations lightheadedness or dizziness. Discharge Disposition: HOME SELF-CARE
[2021-09-20 12:26] VITALS: BP 125/91; PULSE 102; TEMP 98.1
[2021-09-20 13:49] VITALS: BMI 39.6
--- NOTE | 2021-09-20 14:50 | P.PN ---
Subjective This is a pleasant 41-year-old male past medical history significant for Covid 19 infection in 03/2021 and hypertension (currently not on antihypertensives), chronic nicotine dependence (recently quit 3 weeks ago). 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 We have been asked to see in consultation for congestive heart failure. Patient presents emergency department with worsening symptoms of fatigue, bilateral lower extremity edema, dyspnea on exertion, shortness of breath, orthopnea, increased/fluctuating weight. He was found to be in acute hea rt failure with reduced ejection fraction, EF of 5%. Patient underwent left and right heart catheterization with Dr. 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 09/20/2021 Patient seen and examined at bedside, He denies any shortness of breath or chest pain. Feeling well. I/Os: -1638 fluid balance over the past 24 hours. Telemetry reviewed patient in sinus with HRs 90s-110 Labs, sodium 130, potassium 3.9, BUN 20, serum creatinine 1.3 Patient is currently maintained on aspirin 80 mg daily, atorvastatin 40 mg nightly, IV Lasix 40 mg twice a day, lisinopril 10 mg daily, metoprolol succin ate 25 mg daily PHYSICAL EXAMINATION Vitals reviewed. CONSTITUTIONAL: No apparent distress. HEENT: Neck Supple. No JVD No carotid bruit. CHEST EXAMINATION: Lungs clear to auscultation bilaterally. No chest wall tenderness is noted on palpation or with deep breathing. HEART EXAMINATION: Regular rate and rhythm. S1, S2 heard. No murmurs, gallops or rub. ABDOMEN: Soft, nontender. Positive bowel sounds. EXTREMITIES: 2+ peripheral pulses, 1-2+ bilateral extremity edema and no calf tenderness. SKIN: warm, dry, Right groin NEUROLOGIC EXAMINATION: Patient is awake, alert and oriented x3. 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 Follow up with Dr. Raines outpatient in 1-2 weeks. Nurse practitioner note has been reviewed by physician. Signing provider agrees with the documented findings, assessment, and plan of care. Objective - Vital Signs Vital signs: Vital Signs Temp 98.1 F 09/20/21 12:00 Pulse 102 H 09/20/21 12:00 Resp 18 09/20/21 12:00 BP 125/91 09/20/21 12:00 Pulse Ox 94 L 09/20/21 12:00 Intake & Output 09/19/21 09/20/21 09/20/21 18:59 06:59 18:59 Intake Total 462 240 Output Total 2100 3650 Balance -1638 -3410 Weight 129.1 kg 129.1 kg Intake: Oral 462 240 Output: Urine 2100 3650 Other: Voiding Method Urinal Urinal - Labs CBC & Chem 7: 09/19/21 09:34 09/20/21 09:14 Labs: Abnormal Lab Results - Last 24 Hours (Table) 09/20/21 Range/Units 09:14 Carbon Dioxide 32 H (22-30) mmol/L Creatinine 1.30 H (0.66-1.25) mg/dL Glucose 115 H (74-99) mg/dL
[2021-09-20] MEDS ORDERED: FUROSEMIDE 40 MG TAB PO SCH (16:00)
[2021-09-21] MEDS ORDERED: LOSARTAN 25 MG TAB PO SCH (09:00)
[2021-09-21] MEDS ORDERED: METOPROLOL SUCCINATE (ER) 50 MG TAB.ER.24H PO SCH (09:00)
--- NOTE | 2021-09-22 13:22 | CDI ---
Documentation Clarification Form Date: 09/22/21 From: Carissa Guidry Admit Date: 09/18/2021 03:38:00 AM Patient Name: Giovani Meléndez Visit Number: [id number] Discharge Date: 09/20/2021 03:10:00 PM ATTENTION: The Clinical Documentation Specialists (CDI) and [facility] Coding Staff appreciate your assistance in clarifying documentation. Please respond to the clarification below the line at the bottom and electronically sign. The CDI & [facility] Coding staff will review the response and follow-up if needed. Please note: Queries are made part of the Legal Health Record. If you have any questions, please contact the author of this message via ITS. Dr. Misa Cuenca, Your patient has troponin level(s) of: 5/5 - 0.036, 0.039 0.034. Please clarify if there is an additional diagnosis and/or clinical significance related to this value. 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 Treatment: cardiac cath, Cozzar, Aldactone, ASA , Lasix , Liptor, Toprol XL Is there an additional diagnosis and/or clinical significance related to the above lab result/information? [ ] NSTEMI type 1 [ ] Type 2 SD due to CHF [ ] Non-ischemic myocardial injury [ ] Troponemia, not clinically significant [ ] Other, please specify [ ] Unable to determine Non-ischemic myocardial injury MTDD
== END 2021-09-20 15:10 | disposition home or self-care (01) | DRG 286 ==
LOC: EC 22:35 → 3SCARD 09-18 03:38
PROVIDERS: ADMIT Internal Medicine; ATTEND Internal Medicine
PROC: B2111ZZ Fluoroscopy of Multiple Coronary Arteries using Low Osmolar Contrast (ICD-10-PCS; principal; 2021-09-18 13:45)
PROC: B41F1ZZ Fluoroscopy of Right Lower Extremity Arteries using Low Osmolar Contrast (ICD-10-PCS; principal; 2021-09-18 13:45)
PROC: 4A023N8 Measurement of Cardiac Sampling and Pressure, Bilateral, Percutaneous Approach (ICD-10-PCS; principal; 2021-09-18 13:45)
DX: I11.0 Hypertensive heart disease with heart failure (principal); J96.01 Acute respiratory failure with hypoxia; I50.21 Acute systolic (congestive) heart failure; N17.9 Acute kidney failure, unspecified; I5A Non-ischemic myocardial injury (non-traumatic); I27.22 Pulmonary hypertension due to left heart disease; I42.8 Other cardiomyopathies; Z20.822 Contact with and (suspected) exposure to COVID-19; E78.5 Hyperlipidemia, unspecified; R59.9 Enlarged lymph nodes, unspecified; Z79.82 Long term (current) use of aspirin; Z79.899 Other long term (current) drug therapy; Z87.891 Personal history of nicotine dependence; Z86.16 Personal history of COVID-19; Z80.0 Family history of malignant neoplasm of digestive organs; Z83.3 Family history of diabetes mellitus; Z82.49 Family history of ischemic heart disease and other diseases of the circulatory system
CPT/HCPCS: 36415; 71046; 71275; 80048; 80053; 80061; 83605; 83735; 83880; 84443; 84484; 85025; 85379; 85610; 85730; 87502; 87635; 93005; 93306; 93453; 93970; 96374; 96375; 99285